=== PATIENT | male | born 1950 | race Caucasian/White ===

== ENCOUNTER 2018-12-03 14:37 | Emergency (ER) | payer MEDICAID, OTHER ==
[~2018-12-03] VITALS: Ht 172.7 cm; Wt 90.7 kg
[2018-12-03 15:00] VITALS: BP 106/83
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
[2018-12-03] MEDS ORDERED: Tetanus/Diptheria/Pertussis Vaccine 0.5ml Syr IM ONE (15:15)
[2018-12-03] MEDS ORDERED: Bacitracin Oint UD TOPIC ONE (15:15)
[2018-12-03] MEDS: Lidocaine 1% MPF 10mg/ml 5ml IM ONE ×2 (15:15→15:16)
[2018-12-03] MEDS ORDERED: CEPHALEXIN500 MG ORAL (15:54)
[2018-12-03] MEDS ORDERED: IBUPROFEN600 MG ORAL (15:54)
[2018-12-03] MEDS ORDERED: BACITRACIN-P28.35 GM TP (15:54)
[2018-12-03 16:08] VITALS: BP 108/99
--- NOTE | 2018-12-03 16:12 | NUR ---
ER DISCHARGE NOTE: Patient is cleared to be discharged per ERMD, pt is aox4, on room air, with stable vital signs. pt was given dc and prescription instructions, pt was able to verbalize understanding, pt id band removed. pt is able to ambulate with steady gait. pt took all belongings.
== END 2018-12-03 16:13 | disposition home or self-care (01) ==
LOC: EMR 15:05
DX: S61.412A Laceration without foreign body of left hand, initial encounter (principal); X99.1XXA Assault by knife, initial encounter; Y92.89 Other specified places as the place of occurrence of the external cause; Z23 Encounter for immunization; I10 Essential (primary) hypertension; E11.9 Type 2 diabetes mellitus without complications; M10.9 Gout, unspecified
CPT/HCPCS: 90471; 90715; 99283